=== PATIENT | female | born 1960 | race African-American/Black ===

== ENCOUNTER → 2021-01-02 | Outpatient (CLI) | payer SELFPAY ==
--- NOTE | 2021-01-02 13:17 | XR ---
EXAMINATION TYPE: XR knee complete LT DATE OF EXAM: 01/02/2021 CLINICAL HISTORY: pain TECHNIQUE: Three views of the left knee are obtained. COMPARISON: None. FINDINGS: There is no acute fracture/dislocation. The tri-compartment joint spaces appear within no rmal limits. The overlying soft tissue appears unremarkable. IMPRESSION: There is no acute fracture or dislocation ICD 10 NO FRACTURE, INITIAL EVALUATION
--- NOTE | 2021-01-02 13:23 | XR ---
EXAMINATION TYPE: XR lumbosacral spine min 4V DATE OF EXAM: 01/02/2021 CLINICAL HISTORY: pain COMPARISON: NONE TECHNIQUE: Frontal, lateral, and oblique images of the lumbar spine are obtained. FINDINGS: There are 5 lumbar type vertebral bodies identified. The lumbar spine shows satisfactory alignment without evidence of acute fracture or dislocation. Vertebral body heights are within normal limits. Disc spaces are well preserved. The overlying soft tissue appears unremarkable. IMPRESSION: No acute fracture or dislocation is seen in the lumbar spine.ICD 10 NO FRACTURE, INITIAL EVALUATION
--- NOTE | 2021-01-02 13:25 | XR ---
EXAMINATION TYPE: XR Hip Bilateral Complete DATE OF EXAM: 01/02/2021 CLINICAL HISTORY: pain TECHNIQUE: AP and frogleg views of the bilateral hips are obtained. COMPARISON: None. FINDINGS: There is no acute fracture/dislocation evident. The joint space appears within normal li mits. The overlying soft tissue appears unremarkable. IMPRESSION: 1. There is no acute fracture or dislocation. ICD 10 NO FRACTURE, INITIAL EVALUATION
--- NOTE | 2021-01-02 13:26 | XR ---
EXAMINATION TYPE: XR sacroiliac joint comp BILAT DATE OF EXAM: 01/02/2021 COMPARISON: NONE HISTORY: M54.50, G89.29, Z87.39 TECHNIQUE: 3 views of the sacroiliac joints are obtained bilaterally. FINDINGS: The sacroiliac joints are patent bilaterally. There is no evidence for sclerosis or abnorma l widening. No fracture or bony destructive process. IMPRESSION: As above
== END | disposition home or self-care (01) ==
LOC: RADXRMAIN 12:41
PROVIDERS: ATTEND Family Medicine
DX: M54.50 Low back pain, unspecified (principal); M25.551 Pain in right hip; M25.552 Pain in left hip; M25.562 Pain in left knee
CPT/HCPCS: 72110; 72202; 73521

== ENCOUNTER → 2021-09-20 | Outpatient (CLI) | payer BC, OTHER ==
--- NOTE | 2021-09-20 15:24 | BD ---
EXAMINATION TYPE: Axial Bone Density DATE OF EXAM: 09/20/2021 COMPARISON: FIRST DEXA AT [facility] CLINICAL HISTORY: 60 years year old Female. ICD-10 CODE: Z87.39 H/O OSTEOPENIA, Z78.0 POSTMENOPAUSAL Height: 67IN Weight: 125 FRAX RISK QUESTIONS: Secondary Osteoporosis: 3. Menopause before 45: YES RISK FACTORS HISTORY OF: Active: YES Postmenopausal woman: YES TOTAL HYST AT AGE 43 Take estrogen and/or progesterone medications: PREMARIN How lon YEARS, NONE CURRENT MEDICATIONS: Additional Medications: FLEXERIL, CALCIUM VITAMIN D Additional History: EXAM MEASUREMENTS: Bone mineral densitometry was performed using the [employer] System. Bone mineral density as measured about the Lumbar spine is: ----- L1-L4(G/cm2): 0.918 T Score Values are as follows: ----- L1: -1.8 ----- L2: -1.8 ----- L3: -2.3 ----- L4: -2.9 ----- L1-L4: -2.2 FIRST DEXA AT [facility] Bone mineral density about the R hip (g/cm2): 0.724 Bone mineral density about the L hip (g/cm2): 0.760 T Score values are as follows: -----R Neck: -2.9 -----L Neck: -2.6 -----R Total: -2.2 -----L Total: -2.0 FIRST DEXA AT [facility] FRAX%s: The graph provided illustrates a 5.5% chance for a major osteoporotic fx and a 1.5% chance fo r the hips probability for fx in 10 years time. IMPRESSION: Osteopenia (T Score between -2.5 and -1). There is slightly increased risk of fracture and the patient may be considered for treatment. Re-Screen 2-5 years. NOTE: T-SCORE=SD OF THE YOUNG ADULT MEAN.
== END | disposition home or self-care (01) ==
LOC: RADBDWWP 13:10
PROVIDERS: ATTEND Family Medicine
DX: M81.0 Age-related osteoporosis without current pathological fracture (principal); Z78.0 Asymptomatic menopausal state
CPT/HCPCS: 77080